=== PATIENT | male | born 1995 | race Caucasian/White ===

== ENCOUNTER 2021-11-17 09:08 | Emergency (ER) | payer OTHER, SELFPAY ==
[2021-11-17 09:13] VITALS: BP 134/78; PULSE 69; RESP 19; TEMP 36.6; O2SAT 98; BMI 31.6
--- NOTE | 2021-11-17 09:28 | ED.EYEPROB ---
HPI - Eye Problem General Chief complaint: Eye Problems Stated complaint: f/o in eye. work INJ Time Seen by Provider: 11/17/21 09:28 Source: patient Mode of arrival: ambulatory Limitations: no limitations History of Present Illness HPI Narrative: 26 y/o male presents to the ER with a small piece of metal in his right eye while at work 2 days ago. He works doing duct work and despite wearing safety glasses he got a small piece of metal in his eye when he was working with metal. He tried to get it out at home with a magnet and a q-tip without success. He denies any vision changes. He does not wear contacts or glasses. He can feel a FB when he closes his eye and his eye has been watering more. MD chief complaint: eye pain and foreign body Onset (ago): day(s) (2) Onset description: sudden Duration: constant Location: right eye Eye Symptoms: foreign body sensation Place: work Mechanism: direct trauma Severity: mild Severity scale (1-10): 4 If Pain, Quality: aching Context: trauma Associated symptoms: none Treatments Prior to Arrival: irrigated eye Related Data Patient tetanus UTD: Yes Previous Rx's Medication Instructions Recorded sulfacetamide sodium 10 % eye 1 drp OPHTHALMIC-RIGHT Q3H #15 ml 11/17/21 drops (Bleph-10) Allergies Allergy/AdvReac Type Severity Reaction Status Date / Time No Known Allergies Allergy Unverified 03/02/20 19:00 [No Known Allergies*] Review of Systems Review of Systems: Constitutional: No Fever, No Chills ENT/Mouth: No sore throat, No Rhinorrhea, No Swallowing Difficulty Eyes: No Eye Pain, No Swelling, + Redness, +FB sensation, No vision changes Cardiovascular: No Chest Pain, No SOB Respiratory: No Cough, No Sputum Gastrointestinal: No Nausea, No Vomiting Skin: No Skin Lesions, No rash Neuro: No Weakness, No Numbness, No Dizziness, No Headache Heme/Lymph: No Bruising PMFSH Social History Social History Advance Directives: No Advance Directives Information Provided: No Physical Exam Vital Signs: Vital Signs: Last Vital Signs Temp 98 F 11/17/21 09:13 Pulse 69 11/17/21 09:13 Resp 19 11/17/21 09:13 BP 134/78 11/17/21 09:13 Pulse Ox 98 11/17/21 09:13 BMI result Body Mass Index 31.6 Appearance: Alert. Oriented X3. No acute distress. HEENT: normal external structures of the eyes bilaterally, no lid swelling. right eye has scleral injection with a small piece of metal visible at 7 oclock position over the cornea. EOMI. fluorescence exam post removal reveals pinpoint ulceration and small residual rust ring. CVS: Normal heart rate and rhythm. Pulses normal. Respiratory: No respiratory distress. Skin: Skin warm and dry. Normal skin color. Normal skin turgor. No rashes. Extremities: normal inspection x4. Neuro: Oriented X 3. Grossly normal, nonfocal Course Course Course Narrative: 26 y/o male presents to the ER with a small piece of metal in his eye for the last 2 days. Tetracaine applied and successful removal with an 18G needle. Small residual rust ring remains. No vision changes. Will give topical abx and have him f/u with Dr. Luis. Procedures FB Removal Eye Time Out performed: Yes Location: eye (R) Topical anesthetic used: tetracaine Foreign body: metal Evidence of corneal penetration: Yes Technique: irrigation and needle Procedure performed under: direct visualization with magnification Post-procedure medication: ophthalmic antibiotic and topical anesthetic Patient tolerated procedure: well and no complications Complications: residual rust ring Critical Care Time Critical Care Time Critical Care Time: No Discharge Plan Discharge Clinical Impression: Metal foreign body in eye region, Corneal abrasion Patient Disposition: Home, Self-Care Instructions: Corneal Abrasion (DC), Eye Foreign Body (ED) Additional Instructions: use the prescribed eye drops as directed x1 week follow up with your eye doctor Prescriptions: New sulfacetamide sodium [Bleph-10] 10 % drops 1 drp ophthalmic-Right Q3H Qty: 15 0RF Referrals: Bob Luis [Physician] -
[2021-11-17] MEDS: Tetracaine HCl/PF 0.5% Oph Sol 4 ML DROPS 1 DROP EYE-RIGHT (10:06)
== END 2021-11-17 10:17 | disposition home or self-care (01) ==
PROVIDERS: Emergency Provider Student in an Organized Health Care Education/Training Program
DX: T15.01XA Foreign body in cornea, right eye, initial encounter (principal); X58.XXXA Exposure to other specified factors, initial encounter; Y93.89 Activity, other specified; Y92.59 Other trade areas as the place of occurrence of the external cause; Y99.0 Civilian activity done for income or pay
CPT/HCPCS: 65220; 99284